=== PATIENT | female | born 1990 | race Caucasian/White ===

== ENCOUNTER 2022-10-09 16:06 | Emergency (ER) | payer SELFPAY ==
--- NOTE | ~2022-10-09 | XR_ITS ---
EXAMINATION: XR ribs LT 2V w CXR 2V INDICATION: Left-sided chest pain TECHNIQUE: PA and lateral views of the chest and 3 views of the left ribs were obtained. COMPARISON: None. FINDINGS: There are acute, displaced anterolateral fractures of the left seventh, eighth, and ninth r ibs. There are displaced posterior fractures of the left 10th and 11th ribs. Hazy opacification overl kaylyn the left lower chest wall likely reflects overlying soft tissue injury. There is a small amount of subcutaneous gas in the left lateral chest wall. The lungs are free of acute opacities. No pleural effusion or pneumothorax. The cardiomediastinal silhouette is normal. IMPRESSION: 1. Acute displaced fractures of the left seventh through 11th ribs as described above. Reviewed, dictated and finalized at location F. ATTACHER
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
[2022-10-09 16:13] VITALS: BP 123/87; PULSE 101; RESP 18; TEMP 36.6; O2SAT 98
--- NOTE | 2022-10-09 16:26 | PC.NURSE ---
Pt assisted to restroom in w/r, pt restless, crying, not following commands, pt up from w/c and stumbling/crying. This RN attempted to get a urine sample and pt states NO and starts crying on toilet. This RN placed purse in bathroom with her. Pt exited restroom unassisted and sat in w/c by restroom.
[2022-10-09 18:40] LABS: Basophils Absolute Auto 0.1 K/mm3 (0.0-0.1); Basophils Percent Auto 1.7 % (0.2-1.2); Eosinophils Absolute Auto 0.1 K/mm3 (0-0.3); Eosinophils Percent Auto 1.9 % (0-4.4); Hematocrit 44.8 % (37.0-47.0); Hemoglobin 15.6 g/dL (12.0-15.0); Immature Granulocyte Absolute 0.02 K/mm3 (0.00-0.031); Immature Granulocyte Percent A 0.3 % (0-0.5); Lymphocytes Absolute Auto 3.37 K/mm3 (0.9-3.2); Lymphocytes Percent Auto 48.1 % (18.3-44.2); Mean Corpuscular HGB Conc 34.8 g/dl (32-36); Mean Corpuscular Volume 103.5 fl (80-100); Mean Platelet Volume 8.3 fl (7.4-10.4); Monocytes Absolute Auto 0.4 K/mm3 (0.1-0.6); Monocytes Percent Auto 5.8 % (2.6-8.5); Neutrophils Percent Auto 42.2 % (45.5-73.1); Platelet Count Result 471 k/mm3 (150-375); Red Blood Count 4.33 M/mm3 (4.2-5.4); Red Cell Distribution Width 14.6 % (11.5-14.5)
[2022-10-09 18:49] VITALS: BP 119/82; PULSE 79; RESP 18; TEMP 36.2; O2SAT 100
[2022-10-09 18:52] LABS: Prothrombin Time 12.6 Seconds (11.1-14.7)
[2022-10-09 18:53] LABS: Partial Thromboplastin Time 29.3 SECONDS (22.3-36.8)
[2022-10-09 18:55] LABS: Alanine Aminotransferase 36 U/L (6-35); Alkaline Phosphatase 116 U/L (38-126); Anion Gap 9 mmol/L (8-16); Aspartate Amino Transferase 53 U/L (14-36); Bilirubin,Total 0.3 mg/dL (0.2-1.3); Blood Urea Nitrogen 7 mg/dL (7-17); Calcium 9.2 mg/dL (8.4-10.2); Carbon Dioxide 29 mmol/L (22-30); Chloride 111 mmol/L (98-107); Estimated CRCL calculation 83 ml/min; Estimated Glomerular Filt Rate > 60; Glucose 100 mg/dL (65-110); Potassium 3.7 mmol/L (3.4-5.0); Sodium 149 mmol/L (137-145)
[2022-10-09 21:39] VITALS: BP 121/91; PULSE 72; RESP 14; O2SAT 99
[2022-10-09 21:46] VITALS: BP 128/91; PULSE 82; RESP 24; O2SAT 97
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
[2022-10-09] MEDS: LACTATED RINGERS 1,000 ML 999 ML IV CONT (22:07)
[2022-10-09] MEDS: MORPHINE SULFATE (*CRX) 4 MG/ML INJ IV PUSH (22:08)
[2022-10-09] MEDS: ONDANSETRON INJ 4 MG/2 ML VIAL IV PUSH (22:08)
[2022-10-09 22:21] VITALS: PULSE 70
[2022-10-10] VITALS (8 sets, daily range): BP systolic 110–130; BP diastolic 72–86; PULSE 56–105; RESP 15–18; O2SAT 97–99
[2022-10-10 00:38] LABS: Appearance Urine Clear (Clear); Bacteria Urine None Seen /hpf; Bilirubin Urine Negative (Negative); Blood Urine Negative (Negative); Color Urine Yellow (Yellow); Glucose Urine UA Negative (Negative); Ketones Urine Negative (Negative); Leukocyte Esterase Ur Negative LEU/UL (Negative); Nitrate Urine Negative (Negative); Protein Urine 1+ mg/dL (Negative); RBC Urine 0-2 /hpf (0-2); Squamous Epithelial Cell Urine None seen /hpf (Few); Urobilinogen Urine 0.2 mg/dL (<2.0); WBC Urine 0-5 /hpf
[2022-10-10 00:49] LABS: Amphetamine Screen Urine Negative (Negative); Barbiturate Screen Urine Negative (Negative); Benzodiazepines Screen Urine Negative (Negative); Cannabinoid Screen Urine Negative (Negative); Cocaine Screen Urine Negative (Negative); Methadone Screen Urine Negative (Negative); Opiate Screen Urine Negative (Negative); Phencyclidine Screen Urine Negative (Negative)
[2022-10-10 01:14] LABS: Add Urine Microscopic? YES
[2022-10-10 01:26] LABS: Ethanol 458 mg/dL (<10)
[2022-10-10] MEDS: ACETAMINOPHEN 325 MG TABLET 650 MG PO (08:07)
[2022-10-10 10:19] LABS: Ethanol 131 mg/dL (<10)
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
== END 2022-10-10 13:12 | disposition home or self-care (01) ==
PROVIDERS: Emergency Medicine; Emergency Provider General Practice
DX: F10.129 Alcohol abuse with intoxication, unspecified (principal); Y90.8 Blood alcohol level of 240 mg/100 ml or more
CPT/HCPCS: 36415; 70450; 71046; 71100; 71260; 74177; 80053; 80307; 81001; 81025; 85025; 85610; 85730; 96361; 96374; 96375; 99284; A9270; J2270; J2405; J7120; Q9967